=== PATIENT | male | born 1970 | race African-American/Black ===

== ENCOUNTER 2023-06-30 14:00 | Inpatient (IN) | payer SELFPAY ==
[2023-06-30 15:28] LABS: HEMATOCRIT 32.3 % (35.4-49); HEMOGLOBIN 9.6 GM/dL (11.7-16.9); MCHC 29.7 g/dl (32.0-35.9); MEAN CELL VOLUME 66.5 fl (80-96); RBC 4.86 M/mm3 (4.00-5.60); RDW 30.4 % (11.9-15.9); WHITE BLOOD COUNT 4.7 K/mm3 (4.0-10.0)
[2023-06-30 15:30] LABS: VENOUS BASE EXCESS -2.1 mmol/L (-2-2); VENOUS O2 SATURATION 88.2 % (70-80); VENOUS PCO2 45.5 mmHg (38-52); VENOUS PH 7.336 (7.310-7.410)
[2023-06-30 15:32] LABS: MCH 19.7 pg (25.7-33.7)
[2023-06-30 15:46] LABS: POTASSIUM 3.5 mmol/L (3.5-5.1)
[2023-06-30 15:50] LABS: ALBUMIN 3.1 g/dl (3.4-5.0); BLOOD UREA NITROGEN 36.1 mg/dL (7-18); MEAN PLT VOLUME 8.5 fl (7.5-11.1); PLATELET COUNT 218 10^3/uL (134-434)
[2023-06-30 15:53] LABS: CREATININE 2.5 mg/dL (0.55-1.3)
[2023-06-30 15:54] LABS: TOT PROT 7.2 g/dl (6.4-8.2)
[2023-06-30] MEDS ORDERED: ACETAMINOPHEN 1000 MG/100 ML BAG IVPB ONE (16:09)
[2023-06-30] MEDS ORDERED: ACETAMINOPHEN INJECTION 100 ML IVPB ONE (16:10)
[2023-06-30 16:59] LABS: EPI CELLS 20 /uL (0-25.1); HYALINE CASTS 1 /uL (0-3.1); PH,URINE 5.5 (5.0-8.0); URINE APPEARANCE CLEAR; URINE BACTERIA 53 /uL (0-1359); URINE BILIRUBIN NEGATIVE (NEGATIVE); URINE COLOR YELLOW; URINE GLUCOSE (UA) NEGATIVE (NEGATIVE); URINE KETONE NEGATIVE (NEGATIVE); URINE LEUK ESTERASE 2+ (NEGATIVE); URINE NITRITE NEGATIVE (NEGATIVE); URINE PROTEIN TRACE (NEGATIVE); URINE RBC 25 /uL (0-23.9); URINE UROBILINOGEN 0.2 mg/dL (0.2-1.0); URINE WBC 352 /uL (0-25.8)
[2023-06-30 17:05] LABS: N-TERMINAL BNP 8234.3 pg/ml (5-125)
[2023-06-30] MEDS ORDERED: CEFTRIAXONE 1 GM/50 ML BAG ONE (18:33)
[2023-06-30] MEDS ORDERED: METOPROLOL TARTRATE 50 MG TABLET (FP) PO SCH ×2 (20:33→22:00)
[2023-06-30] MEDS ORDERED: METOPROLOL TARTRATE 50 MG TABLET (FP) ONE (21:02)
[2023-06-30] MEDS ORDERED: FUROSEMIDE 40 MG/4 ML INJECTABLE VIAL ONE (21:03)
[2023-06-30] MEDS: FUROSEMIDE 40 MG/4 ML INJECTABLE VIAL IVPUSH SCH (21:03)
[2023-06-30] MEDS ORDERED: busPIRone HCL 5 MG TABLET ONE (23:28)
[2023-06-30] MEDS ORDERED: APIXABAN 5 MG TABLET ONE (23:28)
[2023-06-30] MEDS ORDERED: LIDOCAINE 5% TOPICAL PATCH ONE (23:29)
[2023-06-30] MEDS ORDERED: MELATONIN 5 MG TABLETS ONE (23:29)
[2023-06-30] MEDS ORDERED: traZODone HCL 50 MG TABLET (FP) ONE (23:29)
[2023-06-30] MEDS ORDERED: POTASSIUM CHLORIDE TABS 20 MEQ TABLET.ER (FP) PO ONE (23:29)
[2023-06-30] MEDS ORDERED: ATORVASTATIN CA 40 MG TABLET (FP) ONE (23:29)
[2023-07-01] MEDS: busPIRone HCL 5 MG TABLET PO SCH ×4 (00:30→22:11)
[2023-07-01] MEDS: LIDOCAINE PATCH REMOVAL MC SCH ×2 (00:31→22:11)
[2023-07-01] MEDS: traZODone HCL 50 MG TABLET (FP) PO SCH ×2 (00:31→22:10)
[2023-07-01] MEDS: MAGNESIUM CL 64 MG TABLET.SA PO SCH ×3 (00:31→23:49)
[2023-07-01] MEDS: ATORVASTATIN CA 40 MG TABLET (FP) PO SCH ×2 (00:31→22:10)
[2023-07-01] MEDS: POTASSIUM CHLORIDE TABS 20 MEQ TABLET.ER (FP) PO SCH ×3 (00:31→22:09)
[2023-07-01] MEDS: MELATONIN 5 MG TABLETS PO SCH ×2 (00:31→22:10)
[2023-07-01] MEDS: APIXABAN 5 MG TABLET PO SCH ×3 (00:31→22:10)
[2023-07-01] MEDS: INSULIN SLIDING SCALE (NOVOLOG) 1 VIAL SQ SCH ×5 (00:42→22:11)
[2023-07-01] MEDS ORDERED: ACETAMINOPHEN 325 MG TABLET (FP) ONE ×2 (01:28→20:10)
[2023-07-01] MEDS: ACETAMINOPHEN 325 MG TABLET (FP) PO PRN ×2 (01:32→20:14)
[2023-07-01] MEDS ORDERED: ISOSORBIDE MONONITRATE 30 MG TAB.SR.24H (FP) PO SCH (07:00)
[2023-07-01] MEDS ORDERED: POTASSIUM CHLORIDE TABS 20 MEQ TABLET.ER (FP) PO ONE (08:01)
[2023-07-01] MEDS ORDERED: APIXABAN 5 MG TABLET ONE (08:01)
[2023-07-01] MEDS ORDERED: PANTOPRAZOLE 40 MG TABLET PO ONE (08:01)
[2023-07-01] MEDS ORDERED: SEVELAMER CARBONATE 800 MG TAB (FP) ONE ×2 (08:02→17:53)
[2023-07-01] MEDS ORDERED: LIDOCAINE 5% TOPICAL PATCH ONE (08:02)
[2023-07-01] MEDS ORDERED: METOPROLOL TARTRATE 50 MG TABLET (FP) ONE (08:02)
[2023-07-01] MEDS ORDERED: ISOSORBIDE MONONITRATE 30 MG TAB.SR.24H (FP) PO ONE (08:02)
[2023-07-01] MEDS ORDERED: MIDODRINE HCL 5 MG TABLET ONE (08:02)
[2023-07-01] MEDS ORDERED: FUROSEMIDE 40 MG/4 ML INJECTABLE VIAL ONE ×2 (08:03→08:04)
[2023-07-01] MEDS: SEVELAMER CARBONATE 800 MG TAB (FP) PO SCH ×3 (09:00→17:45)
[2023-07-01] MEDS: FUROSEMIDE 40 MG/4 ML INJECTABLE VIAL IVPUSH SCH (09:45)
[2023-07-01] MEDS: LIDOCAINE 5% TOPICAL PATCH TP SCH (09:46)
[2023-07-01] MEDS: MIDODRINE HCL 5 MG TABLET PO SCH ×3 (09:46→17:49)
[2023-07-01] MEDS: PANTOPRAZOLE 40 MG TABLET PO SCH (09:46)
[2023-07-01] MEDS: METHIMAZOLE 10 MG TABLET PO SCH (11:00)
[2023-07-01] MEDS: LACTOBACILLUS ACIDOPHILUS 1 TABLET PO SCH (11:00)
[2023-07-01] MEDS ORDERED: busPIRone HCL 5 MG TABLET ONE (14:41)
[2023-07-02 02:51] VITALS: BMI 26.2
[2023-07-02] MEDS: METHIMAZOLE 10 MG TABLET PO SCH (06:26)
[2023-07-02] MEDS: busPIRone HCL 5 MG TABLET PO SCH ×3 (06:26→22:07)
[2023-07-02] MEDS: LACTOBACILLUS ACIDOPHILUS 1 TABLET PO SCH (06:26)
[2023-07-02] MEDS: INSULIN SLIDING SCALE (NOVOLOG) 1 VIAL SQ SCH ×4 (06:27→22:07)
[2023-07-02] MEDS: ACETAMINOPHEN 325 MG TABLET (FP) PO PRN (06:29)
[2023-07-02 08:33] LABS: POTASSIUM 3.3 mmol/L (3.5-5.1)
[2023-07-02 08:40] LABS: BLOOD UREA NITROGEN 38.6 mg/dL (7-18); CALCIUM 9.1 mg/dL (8.5-10.1)
[2023-07-02 08:44] LABS: CREATININE 2.7 mg/dL (0.55-1.3)
[2023-07-02] MEDS ORDERED: POTASSIUM CHLORIDE ORAL LIQUID 20 MEQ/15 ML PO ONE (10:01)
[2023-07-02] MEDS: APIXABAN 5 MG TABLET PO SCH ×2 (10:21→22:07)
[2023-07-02] MEDS: PANTOPRAZOLE 40 MG TABLET PO SCH (10:21)
[2023-07-02] MEDS: SEVELAMER CARBONATE 800 MG TAB (FP) PO SCH ×3 (10:21→18:07)
[2023-07-02] MEDS: POTASSIUM CHLORIDE TABS 20 MEQ TABLET.ER (FP) PO SCH (10:21)
[2023-07-02] MEDS: MIDODRINE HCL 5 MG TABLET PO SCH ×3 (10:22→19:22)
[2023-07-02] MEDS: LIDOCAINE 5% TOPICAL PATCH TP SCH (10:22)
[2023-07-02] MEDS: FUROSEMIDE 100 MG/10 ML INJECTABLE VIAL IVPB SCH (10:22)
[2023-07-02] MEDS: MAGNESIUM CL 64 MG TABLET.SA PO SCH ×2 (10:25→22:07)
[2023-07-02] MEDS ORDERED: PNEUMOC 20-VAL CONJ-DIP CRM/PF 0.5 ML SYRINGE IM ONE (11:00)
[2023-07-02] MEDS ORDERED: IRON SUCROSE INJECTION 100 MG in SODIUM CHLORIDE 95 ML IVPB ONE (16:00)
[2023-07-02] MEDS ORDERED: METOPROLOL TARTRATE 50 MG TABLET (FP) PO SCH (22:00)
[2023-07-02] MEDS: METOPROLOL TARTRATE 25 MG TABLET (FP) PO SCH (22:06)
[2023-07-02] MEDS: ATORVASTATIN CA 40 MG TABLET (FP) PO SCH (22:06)
[2023-07-02] MEDS: traZODone HCL 50 MG TABLET (FP) PO SCH (22:06)
[2023-07-02] MEDS: MELATONIN 5 MG TABLETS PO SCH (22:07)
[2023-07-02] MEDS: LIDOCAINE PATCH REMOVAL MC SCH (23:16)
[2023-07-03] MEDS: INSULIN SLIDING SCALE (NOVOLOG) 1 VIAL SQ SCH ×4 (06:13→22:55)
[2023-07-03] MEDS: METHIMAZOLE 10 MG TABLET PO SCH (06:17)
[2023-07-03] MEDS: LACTOBACILLUS ACIDOPHILUS 1 TABLET PO SCH (06:17)
[2023-07-03] MEDS: METOPROLOL TARTRATE 25 MG TABLET (FP) PO SCH ×4 (06:17→22:42)
[2023-07-03] MEDS: busPIRone HCL 5 MG TABLET PO SCH ×3 (06:17→22:43)
[2023-07-03 06:55] LABS: PHENCYCLIDINE,URINE NEGATIVE (NEGATIVE); URINE BARBITURATES NEGATIVE (NEGATIVE)
[2023-07-03 06:56] LABS: METHADONE, UR NEGATIVE (NEGATIVE); OPIATES, URI NEGATIVE (NEGATIVE); URINE AMPHETAMINES NEGATIVE (NEGATIVE); URINE BENZODIAZEPINES NEGATIVE (NEGATIVE)
[2023-07-03 07:04] LABS: COCAINE, UR NEGATIVE (NEGATIVE)
[2023-07-03] MEDS: SEVELAMER CARBONATE 800 MG TAB (FP) PO SCH ×3 (07:51→17:04)
[2023-07-03 08:39] LABS: HEMATOCRIT 31.4 % (35.4-49); HEMOGLOBIN 9.5 GM/dL (11.7-16.9); MCHC 30.2 g/dl (32.0-35.9); MEAN CELL VOLUME 65.3 fl (80-96); MEAN PLT VOLUME 8.4 fl (7.5-11.1); PLATELET COUNT 180 10^3/uL (134-434); RBC 4.81 M/mm3 (4.00-5.60)
[2023-07-03 08:44] LABS: MCH 19.7 pg (25.7-33.7)
[2023-07-03 08:57] LABS: POTASSIUM 3.5 mmol/L (3.5-5.1)
[2023-07-03 08:59] LABS: BLOOD UREA NITROGEN 34.2 mg/dL (7-18); CALCIUM 9.2 mg/dL (8.5-10.1)
[2023-07-03 09:00] LABS: ALBUMIN 3.2 g/dl (3.4-5.0); MAGNESIUM 2.3 mg/dL (1.8-2.4)
[2023-07-03 09:02] LABS: CREATININE 2.4 mg/dL (0.55-1.3)
[2023-07-03 09:04] LABS: BILIRUBIN,TOTAL 0.9 mg/dL (0.2-1)
[2023-07-03] MEDS: PANTOPRAZOLE 40 MG TABLET PO SCH (11:00)
[2023-07-03] MEDS: MAGNESIUM CL 64 MG TABLET.SA PO SCH ×2 (11:00→22:41)
[2023-07-03] MEDS: APIXABAN 5 MG TABLET PO SCH ×2 (11:00→22:43)
[2023-07-03] MEDS: LIDOCAINE 5% TOPICAL PATCH TP SCH (11:00)
[2023-07-03] MEDS: FUROSEMIDE 100 MG/10 ML INJECTABLE VIAL IVPB SCH (11:00)
[2023-07-03] MEDS: ISOSORBIDE MONONITRATE 30 MG TAB.SR.24H (FP) PO SCH (11:00)
[2023-07-03] MEDS ORDERED: INSULIN (NOVOLOG) ASPART 100 UNITS/ML 10ML VIAL ONE (11:27)
[2023-07-03] MEDS: ACETAMINOPHEN 325 MG TABLET (FP) PO PRN ×2 (15:45→22:43)
[2023-07-03] MEDS: traZODone HCL 50 MG TABLET (FP) PO SCH (22:41)
[2023-07-03] MEDS: MELATONIN 5 MG TABLETS PO SCH (22:41)
[2023-07-03] MEDS: ATORVASTATIN CA 40 MG TABLET (FP) PO SCH (22:42)
[2023-07-03] MEDS: LIDOCAINE PATCH REMOVAL MC SCH (22:43)
[2023-07-04] MEDS: INSULIN SLIDING SCALE (NOVOLOG) 1 VIAL SQ SCH ×4 (06:04→22:14)
[2023-07-04] MEDS: METHIMAZOLE 10 MG TABLET PO SCH (06:05)
[2023-07-04] MEDS: busPIRone HCL 5 MG TABLET PO SCH ×3 (06:05→22:11)
[2023-07-04] MEDS: METOPROLOL TARTRATE 25 MG TABLET (FP) PO SCH ×4 (06:05→22:12)
[2023-07-04] MEDS: LACTOBACILLUS ACIDOPHILUS 1 TABLET PO SCH (06:05)
[2023-07-04] MEDS: SEVELAMER CARBONATE 800 MG TAB (FP) PO SCH ×3 (08:29→17:01)
[2023-07-04] MEDS: PANTOPRAZOLE 40 MG TABLET PO SCH (09:29)
[2023-07-04] MEDS: ISOSORBIDE MONONITRATE 30 MG TAB.SR.24H (FP) PO SCH (09:29)
[2023-07-04] MEDS: APIXABAN 5 MG TABLET PO SCH ×2 (09:29→22:12)
[2023-07-04] MEDS: LIDOCAINE 5% TOPICAL PATCH TP SCH (09:30)
[2023-07-04] MEDS: FUROSEMIDE 100 MG/10 ML INJECTABLE VIAL IVPB SCH (09:30)
[2023-07-04] MEDS: MAGNESIUM CL 64 MG TABLET.SA PO SCH ×2 (09:30→22:13)
[2023-07-04] MEDS ORDERED: INSULIN (NOVOLOG) ASPART 100 UNITS/ML 10ML VIAL ONE (11:08)
[2023-07-04] MEDS: ACETAMINOPHEN 325 MG TABLET (FP) PO PRN ×2 (13:49→22:00)
[2023-07-04 16:28] LABS: HEMATOCRIT 31.7 % (35.4-49); HEMOGLOBIN 9.4 GM/dL (11.7-16.9); MCHC 29.7 g/dl (32.0-35.9); MEAN CELL VOLUME 65.9 fl (80-96); RBC 4.81 M/mm3 (4.00-5.60); RDW 30.9 % (11.9-15.9); WHITE BLOOD COUNT 4.6 K/mm3 (4.0-10.0)
[2023-07-04 16:31] LABS: MCH 19.6 pg (25.7-33.7)
[2023-07-04 16:36] LABS: POTASSIUM 3.2 mmol/L (3.5-5.1)
[2023-07-04 16:38] LABS: CALCIUM 8.7 mg/dL (8.5-10.1)
[2023-07-04 16:39] LABS: ALBUMIN 3.2 g/dl (3.4-5.0); BLOOD UREA NITROGEN 37.8 mg/dL (7-18)
[2023-07-04 16:42] LABS: CREATININE 2.3 mg/dL (0.55-1.3); PHOSPHOROUS 3.4 mg/dL (2.5-4.9)
[2023-07-04 16:43] LABS: BILIRUBIN,TOTAL 0.9 mg/dL (0.2-1); TOT PROT 7.3 g/dl (6.4-8.2)
[2023-07-04 17:11] LABS: MEAN PLT VOLUME 8.1 fl (7.5-11.1); PLATELET COUNT 210 10^3/uL (134-434)
[2023-07-04] MEDS ORDERED: POTASSIUM CHLORIDE TABS 20 MEQ TABLET.ER (FP) PO ONE ×2 (19:39→22:00)
[2023-07-04] MEDS: MELATONIN 5 MG TABLETS PO SCH (22:12)
[2023-07-04] MEDS: traZODone HCL 50 MG TABLET (FP) PO SCH (22:12)
[2023-07-04] MEDS: ATORVASTATIN CA 40 MG TABLET (FP) PO SCH (22:12)
[2023-07-04] MEDS: LIDOCAINE PATCH REMOVAL MC SCH (22:43)
[2023-07-05] MEDS: INSULIN SLIDING SCALE (NOVOLOG) 1 VIAL SQ SCH ×4 (06:33→22:30)
[2023-07-05] MEDS: METHIMAZOLE 10 MG TABLET PO SCH (06:33)
[2023-07-05] MEDS: METOPROLOL TARTRATE 25 MG TABLET (FP) PO SCH ×2 (06:33→11:01)
[2023-07-05] MEDS: LACTOBACILLUS ACIDOPHILUS 1 TABLET PO SCH (06:33)
[2023-07-05] MEDS: busPIRone HCL 5 MG TABLET PO SCH ×3 (06:33→21:59)
[2023-07-05] MEDS: SEVELAMER CARBONATE 800 MG TAB (FP) PO SCH ×3 (08:21→16:46)
[2023-07-05] MEDS: PANTOPRAZOLE 40 MG TABLET PO SCH (11:01)
[2023-07-05] MEDS: APIXABAN 5 MG TABLET PO SCH (11:01)
[2023-07-05] MEDS: LIDOCAINE 5% TOPICAL PATCH TP SCH (11:02)
[2023-07-05] MEDS: ISOSORBIDE MONONITRATE 30 MG TAB.SR.24H (FP) PO SCH (11:02)
[2023-07-05] MEDS: FUROSEMIDE 100 MG/10 ML INJECTABLE VIAL IVPB SCH (11:02)
[2023-07-05] MEDS: MAGNESIUM CL 64 MG TABLET.SA PO SCH ×2 (11:02→23:36)
[2023-07-05] MEDS ORDERED: POTASSIUM CHLORIDE ORAL LIQUID 20 MEQ/15 ML PO ONE (14:00)
[2023-07-05] MEDS ORDERED: METOPROLOL TARTRATE 25 MG TABLET (FP) PO SCH ×2 (16:00→18:00)
[2023-07-05 16:45] LABS: HEMOGLOBIN 9.1 GM/dL (11.7-16.9); MCHC 28.4 g/dl (32.0-35.9); MEAN CELL VOLUME 66.9 fl (80-96); MEAN PLT VOLUME 8.3 fl (7.5-11.1); PLATELET COUNT 162 10^3/uL (134-434); RBC 4.78 M/mm3 (4.00-5.60); RDW 30.2 % (11.9-15.9)
[2023-07-05] MEDS: ACETAMINOPHEN 325 MG TABLET (FP) PO PRN (16:45)
[2023-07-05 17:04] LABS: POTASSIUM 3.3 mmol/L (3.5-5.1)
[2023-07-05 17:07] LABS: ALBUMIN 3.1 g/dl (3.4-5.0); BLOOD UREA NITROGEN 41.5 mg/dL (7-18); CALCIUM 8.6 mg/dL (8.5-10.1); MAGNESIUM 2.2 mg/dL (1.8-2.4)
[2023-07-05 17:10] LABS: CREATININE 2.2 mg/dL (0.55-1.3); PHOSPHOROUS 3.6 mg/dL (2.5-4.9)
[2023-07-05 17:12] LABS: BILIRUBIN,TOTAL 0.9 mg/dL (0.2-1)
[2023-07-05] MEDS: traZODone HCL 50 MG TABLET (FP) PO SCH (21:57)
[2023-07-05] MEDS: ATORVASTATIN CA 40 MG TABLET (FP) PO SCH (21:59)
[2023-07-05] MEDS: MELATONIN 5 MG TABLETS PO SCH (21:59)
[2023-07-05] MEDS: ENOXAPARIN NA (PORCINE) 100 MG/1 ML DISP.SYRIN SQ SCH (22:00)
[2023-07-05] MEDS ORDERED: APIXABAN 5 MG TABLET PO SCH (22:00)
[2023-07-05] MEDS: METOPROLOL TARTRATE 50 MG TABLET (FP) PO SCH (22:01)
[2023-07-05] MEDS: LIDOCAINE PATCH REMOVAL MC SCH (23:35)
[2023-07-06] MEDS: busPIRone HCL 5 MG TABLET PO SCH ×3 (05:35→21:16)
[2023-07-06] MEDS: LACTOBACILLUS ACIDOPHILUS 1 TABLET PO SCH (06:05)
[2023-07-06] MEDS: METHIMAZOLE 10 MG TABLET PO SCH (06:07)
[2023-07-06] MEDS: ACETAMINOPHEN 325 MG TABLET (FP) PO PRN ×2 (06:07→18:18)
[2023-07-06] MEDS: INSULIN SLIDING SCALE (NOVOLOG) 1 VIAL SQ SCH ×4 (06:12→21:17)
[2023-07-06 08:08] LABS: BASO % 1.3 % (0-2.0); EOS % 2.6 % (0-4.5); HEMATOCRIT 28.5 % (35.4-49); HEMOGLOBIN 8.9 GM/dL (11.7-16.9); LYMPH % 14.6 % (8-40); MCH 20.2 pg (25.7-33.7); MCHC 31.1 g/dl (32.0-35.9); MEAN PLT VOLUME 8.1 fl (7.5-11.1); MONO % 12.2 % (3.8-10.2); NEUT % 69.3 % (42.8-82.8); PLATELET COUNT 199 10^3/uL (134-434); RBC 4.38 M/mm3 (4.00-5.60); RDW 29.3 % (11.9-15.9); WHITE BLOOD COUNT 4.7 K/mm3 (4.0-10.0)
[2023-07-06 08:17] LABS: POTASSIUM 3.2 mmol/L (3.5-5.1)
[2023-07-06 08:28] LABS: CALCIUM 8.9 mg/dL (8.5-10.1); INR 2.22 (0.83-1.09); PROTHROMBIN TIME (PATIENT) 25.6 SEC (9.7-13.0)
[2023-07-06 08:29] LABS: BLOOD UREA NITROGEN 48.3 mg/dL (7-18); MAGNESIUM 2.2 mg/dL (1.8-2.4)
[2023-07-06 08:32] LABS: CREATININE 2.1 mg/dL (0.55-1.3)
[2023-07-06 08:34] LABS: TOT PROT 6.9 g/dl (6.4-8.2)
[2023-07-06] MEDS: SEVELAMER CARBONATE 800 MG TAB (FP) PO SCH ×3 (09:01→17:30)
[2023-07-06 09:31] LABS: ANISOCYTOSIS 3+; MACROCYTOSIS 0; OVALOCYTE 2+; TEAR DROP CELLS 1+
[2023-07-06] MEDS: PANTOPRAZOLE 40 MG TABLET PO SCH (10:04)
[2023-07-06] MEDS: LIDOCAINE 5% TOPICAL PATCH TP SCH (10:04)
[2023-07-06] MEDS: METOPROLOL TARTRATE 50 MG TABLET (FP) PO SCH ×3 (10:04→22:30)
[2023-07-06] MEDS: ISOSORBIDE MONONITRATE 30 MG TAB.SR.24H (FP) PO SCH (10:04)
[2023-07-06] MEDS: FUROSEMIDE 100 MG/10 ML INJECTABLE VIAL IVPB SCH (10:06)
[2023-07-06] MEDS: ENOXAPARIN NA (PORCINE) 100 MG/1 ML DISP.SYRIN SQ SCH ×3 (10:07→21:23)
[2023-07-06] MEDS: MAGNESIUM CL 64 MG TABLET.SA PO SCH ×2 (10:07→21:16)
[2023-07-06] MEDS ORDERED: POTASSIUM CHLORIDE ORAL LIQUID 20 MEQ/15 ML PO ONE (15:02)
[2023-07-06] MEDS ORDERED: POTASSIUM CHLORIDE TABS 20 MEQ TABLET.ER (FP) PO ONE (15:45)
[2023-07-06] MEDS: ATORVASTATIN CA 40 MG TABLET (FP) PO SCH (21:14)
[2023-07-06] MEDS: MELATONIN 5 MG TABLETS PO SCH (21:14)
[2023-07-06] MEDS: traZODone HCL 50 MG TABLET (FP) PO SCH (21:15)
[2023-07-07] MEDS: ACETAMINOPHEN 325 MG TABLET (FP) PO PRN (00:41)
[2023-07-07] MEDS: LIDOCAINE PATCH REMOVAL MC SCH ×2 (00:51→21:42)
[2023-07-07] MEDS: LACTOBACILLUS ACIDOPHILUS 1 TABLET PO SCH (06:00)
[2023-07-07] MEDS: busPIRone HCL 5 MG TABLET PO SCH ×3 (06:00→21:39)
[2023-07-07] MEDS: INSULIN SLIDING SCALE (NOVOLOG) 1 VIAL SQ SCH ×4 (06:04→21:35)
[2023-07-07] MEDS: METHIMAZOLE 10 MG TABLET PO SCH (06:52)
[2023-07-07] MEDS: SEVELAMER CARBONATE 800 MG TAB (FP) PO SCH ×3 (07:54→16:51)
[2023-07-07] MEDS: METOPROLOL TARTRATE 50 MG TABLET (FP) PO SCH ×2 (09:41→21:38)
[2023-07-07] MEDS: PANTOPRAZOLE 40 MG TABLET PO SCH (09:41)
[2023-07-07] MEDS: LIDOCAINE 5% TOPICAL PATCH TP SCH (09:41)
[2023-07-07] MEDS: ISOSORBIDE MONONITRATE 30 MG TAB.SR.24H (FP) PO SCH (09:41)
[2023-07-07] MEDS: FUROSEMIDE 100 MG/10 ML INJECTABLE VIAL IVPB SCH (09:42)
[2023-07-07] MEDS: ENOXAPARIN NA (PORCINE) 100 MG/1 ML DISP.SYRIN SQ SCH ×2 (09:42→21:40)
[2023-07-07 09:45] LABS: EOS % 2.6 % (0-4.5); HEMATOCRIT 28.9 % (35.4-49); HEMOGLOBIN 8.8 GM/dL (11.7-16.9); LYMPH % 18.1 % (8-40); MCHC 30.6 g/dl (32.0-35.9); MEAN CELL VOLUME 65.2 fl (80-96); MEAN PLT VOLUME 8.2 fl (7.5-11.1); MONO % 13.6 % (3.8-10.2); NEUT % 64.7 % (42.8-82.8); PLATELET COUNT 181 10^3/uL (134-434); RBC 4.42 M/mm3 (4.00-5.60); RDW 29.2 % (11.9-15.9); WHITE BLOOD COUNT 4.5 K/mm3 (4.0-10.0)
[2023-07-07] MEDS: MAGNESIUM CL 64 MG TABLET.SA PO SCH ×2 (09:46→21:41)
[2023-07-07 10:17] LABS: POTASSIUM 3.6 mmol/L (3.5-5.1)
[2023-07-07 10:21] LABS: CALCIUM 8.7 mg/dL (8.5-10.1)
[2023-07-07 10:22] LABS: ALBUMIN 3.1 g/dl (3.4-5.0); BLOOD UREA NITROGEN 48.3 mg/dL (7-18); MAGNESIUM 2.3 mg/dL (1.8-2.4)
[2023-07-07 10:25] LABS: CREATININE 2.3 mg/dL (0.55-1.3); PHOSPHOROUS 3.8 mg/dL (2.5-4.9)
[2023-07-07 10:26] LABS: BILIRUBIN,TOTAL 0.9 mg/dL (0.2-1)
[2023-07-07 10:27] LABS: TOT PROT 6.8 g/dl (6.4-8.2)
[2023-07-07] MEDS: traZODone HCL 50 MG TABLET (FP) PO SCH (21:38)
[2023-07-07] MEDS: ATORVASTATIN CA 40 MG TABLET (FP) PO SCH (21:38)
[2023-07-07] MEDS: MELATONIN 5 MG TABLETS PO SCH (21:39)
[2023-07-08] MEDS: busPIRone HCL 5 MG TABLET PO SCH ×3 (06:19→22:15)
[2023-07-08] MEDS: INSULIN SLIDING SCALE (NOVOLOG) 1 VIAL SQ SCH ×3 (06:19→16:35)
[2023-07-08] MEDS: LACTOBACILLUS ACIDOPHILUS 1 TABLET PO SCH (06:19)
[2023-07-08] MEDS: METHIMAZOLE 10 MG TABLET PO SCH (06:55)
[2023-07-08] MEDS: SEVELAMER CARBONATE 800 MG TAB (FP) PO SCH ×3 (08:29→17:13)
[2023-07-08 09:05] LABS: HEMATOCRIT 29.4 % (35.4-49); HEMOGLOBIN 8.7 GM/dL (11.7-16.9); MCH 19.6 pg (25.7-33.7); MCHC 29.5 g/dl (32.0-35.9); MEAN CELL VOLUME 66.4 fl (80-96); MEAN PLT VOLUME 8.4 fl (7.5-11.1); PLATELET COUNT 220 10^3/uL (134-434); RBC 4.43 M/mm3 (4.00-5.60); RDW 28.7 % (11.9-15.9); WHITE BLOOD COUNT 5.1 K/mm3 (4.0-10.0)
[2023-07-08 09:22] LABS: POTASSIUM 3.4 mmol/L (3.5-5.1)
[2023-07-08 09:24] LABS: CALCIUM 8.9 mg/dL (8.5-10.1)
[2023-07-08 09:25] LABS: ALBUMIN 3.1 g/dl (3.4-5.0); MAGNESIUM 2.2 mg/dL (1.8-2.4)
[2023-07-08 09:28] LABS: CREATININE 2.3 mg/dL (0.55-1.3); PHOSPHOROUS 3.6 mg/dL (2.5-4.9)
[2023-07-08 09:29] LABS: TOT PROT 7.1 g/dl (6.4-8.2)
[2023-07-08] MEDS: ISOSORBIDE MONONITRATE 30 MG TAB.SR.24H (FP) PO SCH (09:29)
[2023-07-08] MEDS: PANTOPRAZOLE 40 MG TABLET PO SCH (09:29)
[2023-07-08] MEDS: MAGNESIUM CL 64 MG TABLET.SA PO SCH ×2 (09:29→22:16)
[2023-07-08] MEDS: METOPROLOL TARTRATE 50 MG TABLET (FP) PO SCH ×2 (09:29→22:15)
[2023-07-08] MEDS: ENOXAPARIN NA (PORCINE) 100 MG/1 ML DISP.SYRIN SQ SCH ×3 (09:30→22:19)
[2023-07-08] MEDS: FUROSEMIDE 100 MG/10 ML INJECTABLE VIAL IVPB SCH (09:30)
[2023-07-08 10:30] LABS: ANISOCYTOSIS 0; MACROCYTOSIS 0; OVALOCYTE 1+
[2023-07-08] MEDS: LIDOCAINE 5% TOPICAL PATCH TP SCH (10:31)
[2023-07-08] MEDS: POTASSIUM CHLORIDE ORAL LIQUID 20 MEQ/15 ML PO ONE ×2 (13:16→13:19)
[2023-07-08] MEDS ORDERED: POTASSIUM CHLORIDE TABS 20 MEQ TABLET.ER (FP) PO ONE (14:00)
[2023-07-08] MEDS: ACETAMINOPHEN 325 MG TABLET (FP) PO PRN (15:38)
[2023-07-08] MEDS: traZODone HCL 50 MG TABLET (FP) PO SCH (22:15)
[2023-07-08] MEDS: ATORVASTATIN CA 40 MG TABLET (FP) PO SCH (22:15)
[2023-07-08] MEDS: MELATONIN 5 MG TABLETS PO SCH (22:15)
[2023-07-08] MEDS: LIDOCAINE PATCH REMOVAL MC SCH (22:21)
[2023-07-09] MEDS ORDERED: LEVALBUTEROL HCL 0.63 MG/3 ML VIAL.NEB. IH ONE (01:31)
[2023-07-09] MEDS: METHIMAZOLE 10 MG TABLET PO SCH (06:59)
[2023-07-09] MEDS: busPIRone HCL 5 MG TABLET PO SCH ×3 (06:59→21:55)
[2023-07-09] MEDS: LACTOBACILLUS ACIDOPHILUS 1 TABLET PO SCH (06:59)
[2023-07-09] MEDS: INSULIN SLIDING SCALE (NOVOLOG) 1 VIAL SQ SCH ×2 (07:03→16:44)
[2023-07-09] MEDS: ACETAMINOPHEN 325 MG TABLET (FP) PO PRN ×2 (07:06→14:17)
[2023-07-09] MEDS: SEVELAMER CARBONATE 800 MG TAB (FP) PO SCH ×3 (08:43→16:44)
[2023-07-09] MEDS: METOPROLOL TARTRATE 50 MG TABLET (FP) PO SCH (09:58)
[2023-07-09] MEDS: ENOXAPARIN NA (PORCINE) 100 MG/1 ML DISP.SYRIN SQ SCH (09:58)
[2023-07-09] MEDS: LIDOCAINE 5% TOPICAL PATCH TP SCH (09:58)
[2023-07-09] MEDS: ISOSORBIDE MONONITRATE 30 MG TAB.SR.24H (FP) PO SCH (09:58)
[2023-07-09] MEDS: PANTOPRAZOLE 40 MG TABLET PO SCH (09:58)
[2023-07-09] MEDS: FUROSEMIDE 100 MG/10 ML INJECTABLE VIAL IVPB SCH (09:59)
[2023-07-09] MEDS: MAGNESIUM CL 64 MG TABLET.SA PO SCH ×2 (09:59→21:55)
[2023-07-09] MEDS: ALLOPURINOL 300 MG TABLET (FP) PO SCH (11:57)
[2023-07-09] MEDS: LIDOCAINE PATCH REMOVAL MC SCH (21:50)
[2023-07-09] MEDS: MELATONIN 5 MG TABLETS PO SCH (21:54)
[2023-07-09] MEDS: METOPROLOL TARTRATE 25 MG TABLET (FP) PO SCH (21:54)
[2023-07-09] MEDS: ATORVASTATIN CA 40 MG TABLET (FP) PO SCH (21:54)
[2023-07-09] MEDS: traZODone HCL 50 MG TABLET (FP) PO SCH (21:55)
[2023-07-09] MEDS: APIXABAN 5 MG TABLET PO SCH (21:55)
[2023-07-10] MEDS: ALLOPURINOL 300 MG TABLET (FP) PO SCH (06:16)
[2023-07-10] MEDS: FUROSEMIDE 40 MG TABLET (FP) PO SCH ×2 (06:16→13:51)
[2023-07-10] MEDS: METHIMAZOLE 10 MG TABLET PO SCH (06:16)
[2023-07-10] MEDS: LACTOBACILLUS ACIDOPHILUS 1 TABLET PO SCH (06:17)
[2023-07-10] MEDS: busPIRone HCL 5 MG TABLET PO SCH ×2 (06:17→13:51)
[2023-07-10] MEDS: INSULIN SLIDING SCALE (NOVOLOG) 1 VIAL SQ SCH ×2 (06:21→17:17)
[2023-07-10] MEDS: METOPROLOL TARTRATE 25 MG TABLET (FP) PO SCH (09:02)
[2023-07-10] MEDS: APIXABAN 5 MG TABLET PO SCH (09:02)
[2023-07-10] MEDS: ISOSORBIDE MONONITRATE 30 MG TAB.SR.24H (FP) PO SCH (09:02)
[2023-07-10] MEDS: SEVELAMER CARBONATE 800 MG TAB (FP) PO SCH ×3 (09:02→17:15)
[2023-07-10] MEDS: PANTOPRAZOLE 40 MG TABLET PO SCH (09:02)
[2023-07-10] MEDS: LIDOCAINE 5% TOPICAL PATCH TP SCH (09:02)
[2023-07-10] MEDS: MAGNESIUM CL 64 MG TABLET.SA PO SCH (09:14)
[2023-07-10 10:56] LABS: BASO % 0.6 % (0-2.0); EOS % 1.9 % (0-4.5); HEMATOCRIT 28.7 % (35.4-49); HEMOGLOBIN 8.6 GM/dL (11.7-16.9); MCHC 30.1 g/dl (32.0-35.9); MEAN CELL VOLUME 66.3 fl (80-96); MEAN PLT VOLUME 8.2 fl (7.5-11.1); MONO % 13.7 % (3.8-10.2); NEUT % 71.8 % (42.8-82.8); PLATELET COUNT 184 10^3/uL (134-434); RBC 4.33 M/mm3 (4.00-5.60); RDW 29.1 % (11.9-15.9); WHITE BLOOD COUNT 5.3 K/mm3 (4.0-10.0)
[2023-07-10 10:57] LABS: MCH 19.9 pg (25.7-33.7)
[2023-07-10 11:45] LABS: ANISOCYTOSIS 1+; MACROCYTOSIS 0; OVALOCYTE 1+
[2023-07-10 11:52] LABS: POTASSIUM 3.2 mmol/L (3.5-5.1)
[2023-07-10 11:56] VITALS: RESP 18; TEMP 98
[2023-07-10 12:00] LABS: BLOOD UREA NITROGEN 36.9 mg/dL (7-18); CALCIUM 8.5 mg/dL (8.5-10.1); MAGNESIUM 2.3 mg/dL (1.8-2.4)
[2023-07-10 12:01] LABS: ALBUMIN 3.2 g/dl (3.4-5.0)
[2023-07-10 12:04] LABS: CREATININE 2.2 mg/dL (0.55-1.3); PHOSPHOROUS 3.9 mg/dL (2.5-4.9)
[2023-07-10 12:05] LABS: BILIRUBIN,TOTAL 0.9 mg/dL (0.2-1); TOT PROT 6.9 g/dl (6.4-8.2)
[2023-07-10] MEDS: ACETAMINOPHEN 325 MG TABLET (FP) PO PRN (13:51)
[2023-07-10] MEDS: POTASSIUM CHLORIDE ORAL LIQUID 20 MEQ/15 ML PO ONE ×2 (14:33→14:36)
[2023-07-10] MEDS ORDERED: POTASSIUM CHLORIDE TABS 20 MEQ TABLET.ER (FP) PO ONE (14:40)
[2023-07-10 15:40] VITALS: BP 103/59; PULSE 103
== END 2023-07-10 22:35 | DRG 194 ==
LOC: JER 14:00 → JERBED 17:29 → J4W 07-01 21:53 → J6S 07-05 15:27
PROVIDERS: ADMIT Internal Medicine; ATTEND Internal Medicine
DX: I13.0 Hypertensive heart and chronic kidney disease with heart failure and stage 1 through stage 4 chronic kidney disease, or unspecified chronic kidney disease (principal); E11.22 Type 2 diabetes mellitus with diabetic chronic kidney disease; J96.21 Acute and chronic respiratory failure with hypoxia; E87.0 Hyperosmolality and hypernatremia; N18.30 Chronic kidney disease, stage 3 unspecified; I50.33 Acute on chronic diastolic (congestive) heart failure; F32.A Depression, unspecified; K59.00 Constipation, unspecified; G89.29 Other chronic pain; E78.5 Hyperlipidemia, unspecified; N17.9 Acute kidney failure, unspecified; I27.20 Pulmonary hypertension, unspecified; I42.0 Dilated cardiomyopathy; D50.9 Iron deficiency anemia, unspecified; E05.90 Thyrotoxicosis, unspecified without thyrotoxic crisis or storm; I48.91 Unspecified atrial fibrillation; M10.9 Gout, unspecified; E87.6 Hypokalemia; N39.0 Urinary tract infection, site not specified; B96.89 Other specified bacterial agents as the cause of diseases classified elsewhere; B95.1 Streptococcus, group B, as the cause of diseases classified elsewhere; J44.9 Chronic obstructive pulmonary disease, unspecified; N31.9 Neuromuscular dysfunction of bladder, unspecified; N40.1 Benign prostatic hyperplasia with lower urinary tract symptoms; R33.8 Other retention of urine; Z93.50 Unspecified cystostomy status; Z86.73 Personal history of transient ischemic attack (TIA), and cerebral infarction without residual deficits
CPT/HCPCS: 0241U-QW; 36415; 71045-TC-FY; 71046-TC-FY; 71250-TC; 76775-TC; 80048; 80053; 80061; 80307; 81003; 82570; 82607; 82728; 82746; 82803; 82962; 83036; 83540; 83550; 83735; 83880; 84100; 84155; 84156; 84165; 84300; 84439; 84443; 84484; 84540; 85025; 85027; 85610; 86038; 86160; 87077; 87086; 87186; 93005; 93010; 93306-TC; 97116-GP; 97162-GP; 99285-25

== ENCOUNTER 2023-08-15 01:14 | Inpatient (IN) | payer OTHER ==
[2023-08-15 03:25] LABS: BASO % 1.9 % (0-2.0); EOS % 1.9 % (0-4.5); HEMATOCRIT 18.4 % (35.4-49); LYMPH % 8.5 % (8-40); MCHC 29.1 g/dl (32.0-35.9); MEAN PLT VOLUME 7.7 fl (7.5-11.1); MONO % 14.1 % (3.8-10.2); NEUT % 73.6 % (42.8-82.8); PLATELET COUNT 334 10^3/uL (134-434); RDW 23.5 % (11.9-15.9)
[2023-08-15 03:26] LABS: MCH 19.2 pg (25.7-33.7)
[2023-08-15 03:28] LABS: HEMOGLOBIN 5.4 GM/dL (11.7-16.9)
[2023-08-15 03:33] LABS: INR 3.15 (0.83-1.09); PROTHROMBIN TIME (PATIENT) 36.1 SEC (9.7-13.0)
[2023-08-15 03:35] LABS: ACTIVATED PTT 29.1 SECONDS (25.2-36.5)
[2023-08-15 03:50] LABS: ALBUMIN 2.7 g/dl (3.4-5.0)
[2023-08-15 03:53] LABS: CREATININE 3.8 mg/dL (0.55-1.3)
[2023-08-15 03:55] LABS: BILIRUBIN,TOTAL 0.8 mg/dL (0.2-1); TOT PROT 7.1 g/dl (6.4-8.2)
[2023-08-15 06:05] LABS: ANISOCYTOSIS 3+; MACROCYTOSIS 0; ROULEAU 1+; TARGET CELLS 1+; TEAR DROP CELLS 1+
[2023-08-15 08:38] VITALS: BMI 31.8
[2023-08-15 08:49] LABS: RETICULOCYTES 2.24 % (0.5-1.5)
[2023-08-15] MEDS ORDERED: TORSEMIDE 20 MG TABLET (FP) PO SCH (09:15)
[2023-08-15] MEDS ORDERED: hydrALAZINE HCL 10 MG TABLET PO SCH (09:15)
[2023-08-15] MEDS: PANTOPRAZOLE SODIUM 40 MG VIAL IVPUSH SCH (10:44)
[2023-08-15 11:29] LABS: EPI CELLS 16 /uL (0-25.1); HYALINE CASTS 0 /uL (0-3.1); URINE APPEARANCE CLEAR; URINE BACTERIA 58 /uL (0-1359); URINE BILIRUBIN NEGATIVE (NEGATIVE); URINE COLOR YELLOW; URINE GLUCOSE (UA) NEGATIVE (NEGATIVE); URINE KETONE NEGATIVE (NEGATIVE); URINE LEUK ESTERASE 2+ (NEGATIVE); URINE NITRITE NEGATIVE (NEGATIVE); URINE PROTEIN TRACE (NEGATIVE); URINE RBC 16 /uL (0-23.9); URINE UROBILINOGEN 0.2 mg/dL (0.2-1.0); URINE WBC 77 /uL (0-25.8)
[2023-08-15 11:50] LABS: URINE UREA NITROGEN 557 MG/DL (350-1000)
[2023-08-15] MEDS: INSULIN SLIDING SCALE (NOVOLOG) 1 VIAL SQ SCH ×3 (13:04→21:57)
[2023-08-15] MEDS: SEVELAMER CARBONATE 800 MG TAB (FP) PO SCH ×2 (13:05→18:07)
[2023-08-15] MEDS: busPIRone HCL 5 MG TABLET PO SCH ×2 (14:45→21:49)
[2023-08-15 16:15] LABS: BASO % 1.6 % (0-2.0); EOS % 1.4 % (0-4.5); HEMATOCRIT 22.3 % (35.4-49); MCHC 27.8 g/dl (32.0-35.9); MEAN CELL VOLUME 69.7 fl (80-96); MEAN PLT VOLUME 8.1 fl (7.5-11.1); MONO % 18.3 % (3.8-10.2); NEUT % 70.7 % (42.8-82.8); PLATELET COUNT 332 10^3/uL (134-434); RDW 23.2 % (11.9-15.9); WHITE BLOOD COUNT 6.2 K/mm3 (4.0-10.0)
[2023-08-15 16:17] LABS: MCH 19.4 pg (25.7-33.7)
[2023-08-15 16:18] LABS: HEMOGLOBIN 6.2 GM/dL (11.7-16.9)
[2023-08-15 17:06] LABS: POTASSIUM 5.3 mmol/L (3.5-5.1)
[2023-08-15 17:09] LABS: ALBUMIN 2.7 g/dl (3.4-5.0)
[2023-08-15 17:12] LABS: CREATININE 3.9 mg/dL (0.55-1.3)
[2023-08-15 17:14] LABS: BILIRUBIN,TOTAL 1.1 mg/dL (0.2-1); TOT PROT 6.8 g/dl (6.4-8.2)
[2023-08-15] MEDS: MELATONIN 5 MG TABLETS PO SCH (21:48)
[2023-08-15] MEDS: ATORVASTATIN CA 40 MG TABLET (FP) PO SCH (21:48)
[2023-08-15] MEDS: traZODone HCL 50 MG TABLET (FP) PO SCH (21:48)
[2023-08-15 23:09] LABS: BASO % 0.9 % (0-2.0); EOS % 2.1 % (0-4.5); HEMATOCRIT 22.1 % (35.4-49); LYMPH % 7.2 % (8-40); MCH 20.6 pg (25.7-33.7); MEAN CELL VOLUME 68.5 fl (80-96); MEAN PLT VOLUME 7.5 fl (7.5-11.1); MONO % 16.2 % (3.8-10.2); NEUT % 73.6 % (42.8-82.8); PLATELET COUNT 292 10^3/uL (134-434); RBC 3.23 M/mm3 (4.00-5.60); RDW 22.8 % (11.9-15.9); WHITE BLOOD COUNT 6.1 K/mm3 (4.0-10.0)
[2023-08-15 23:19] LABS: HEMOGLOBIN 6.6 GM/dL (11.7-16.9)
[2023-08-16] MEDS: TORSEMIDE 20 MG TABLET (FP) PO SCH ×2 (06:47→17:29)
[2023-08-16] MEDS: ISOSORBIDE MONONITRATE 30 MG TAB.SR.24H (FP) PO SCH (06:47)
[2023-08-16] MEDS: busPIRone HCL 5 MG TABLET PO SCH ×3 (06:48→22:31)
[2023-08-16] MEDS: INSULIN SLIDING SCALE (NOVOLOG) 1 VIAL SQ SCH ×4 (06:48→21:52)
[2023-08-16] MEDS: METHIMAZOLE 10 MG TABLET PO SCH (06:55)
[2023-08-16] MEDS ORDERED: ALLOPURINOL 300 MG TABLET (FP) PO SCH (07:00)
[2023-08-16 08:22] LABS: HEMATOCRIT 26.4 % (35.4-49); LYMPH % 9.9 % (8-40); MCH 21.2 pg (25.7-33.7); MCHC 30.3 g/dl (32.0-35.9); MEAN CELL VOLUME 69.9 fl (80-96); MEAN PLT VOLUME 7.9 fl (7.5-11.1); MONO % 13.9 % (3.8-10.2); NEUT % 73.2 % (42.8-82.8); PLATELET COUNT 326 10^3/uL (134-434); RBC 3.77 M/mm3 (4.00-5.60); RDW 22.9 % (11.9-15.9); WHITE BLOOD COUNT 7.2 K/mm3 (4.0-10.0)
[2023-08-16 08:26] LABS: INR 2.11 (0.83-1.09); PROTHROMBIN TIME (PATIENT) 24.3 SEC (9.7-13.0)
[2023-08-16] MEDS: SEVELAMER CARBONATE 800 MG TAB (FP) PO SCH ×3 (08:33→16:46)
[2023-08-16 08:57] LABS: POTASSIUM 3.9 mmol/L (3.5-5.1)
[2023-08-16 09:04] LABS: ALBUMIN 2.8 g/dl (3.4-5.0); BLOOD UREA NITROGEN 72.7 mg/dL (7-18); CALCIUM 8.4 mg/dL (8.5-10.1)
[2023-08-16 09:07] LABS: CREATININE 3.8 mg/dL (0.55-1.3)
[2023-08-16 09:08] LABS: BILIRUBIN,TOTAL 1.5 mg/dL (0.2-1); TOT PROT 6.9 g/dl (6.4-8.2)
[2023-08-16 09:24] LABS: MAGNESIUM 2.3 mg/dL (1.8-2.4)
[2023-08-16] MEDS: ALLOPURINOL 100 MG TABLET (FP) PO SCH (10:14)
[2023-08-16] MEDS: PANTOPRAZOLE SODIUM 40 MG VIAL IVPUSH SCH (10:14)
[2023-08-16] MEDS: ATORVASTATIN CA 40 MG TABLET (FP) PO SCH (21:52)
[2023-08-16] MEDS: MELATONIN 5 MG TABLETS PO SCH (21:52)
[2023-08-16] MEDS: traZODone HCL 50 MG TABLET (FP) PO SCH (21:52)
[2023-08-17] MEDS: TORSEMIDE 20 MG TABLET (FP) PO SCH ×2 (05:32→17:17)
[2023-08-17] MEDS: busPIRone HCL 5 MG TABLET PO SCH (05:32)
[2023-08-17] MEDS: METHIMAZOLE 10 MG TABLET PO SCH (06:06)
[2023-08-17] MEDS: ISOSORBIDE MONONITRATE 30 MG TAB.SR.24H (FP) PO SCH (06:06)
[2023-08-17] MEDS: INSULIN SLIDING SCALE (NOVOLOG) 1 VIAL SQ SCH ×4 (06:06→21:38)
[2023-08-17 07:39] LABS: HEMATOCRIT 23.8 % (35.4-49); HEMOGLOBIN 7.4 GM/dL (11.7-16.9); MCH 21.5 pg (25.7-33.7); MCHC 31.1 g/dl (32.0-35.9); MEAN CELL VOLUME 69.1 fl (80-96); MEAN PLT VOLUME 7.5 fl (7.5-11.1); PLATELET COUNT 276 10^3/uL (134-434); RBC 3.44 M/mm3 (4.00-5.60); RDW 22.9 % (11.9-15.9); WHITE BLOOD COUNT 7.3 K/mm3 (4.0-10.0)
[2023-08-17 08:06] LABS: POTASSIUM 3.7 mmol/L (3.5-5.1)
[2023-08-17 08:10] LABS: ALBUMIN 2.6 g/dl (3.4-5.0)
[2023-08-17 08:11] LABS: BLOOD UREA NITROGEN 71.3 mg/dL (7-18); MAGNESIUM 2.2 mg/dL (1.8-2.4)
[2023-08-17 08:13] LABS: PHOSPHOROUS 3.9 mg/dL (2.5-4.9)
[2023-08-17 08:14] LABS: CREATININE 3.5 mg/dL (0.55-1.3)
[2023-08-17 08:15] LABS: TOT PROT 6.4 g/dl (6.4-8.2)
[2023-08-17] MEDS: PANTOPRAZOLE SODIUM 40 MG VIAL IVPUSH SCH (10:48)
[2023-08-17] MEDS: ALLOPURINOL 100 MG TABLET (FP) PO SCH (10:48)
[2023-08-17] MEDS: SEVELAMER CARBONATE 800 MG TAB (FP) PO SCH ×3 (10:48→17:17)
[2023-08-17] MEDS: ATORVASTATIN CA 40 MG TABLET (FP) PO SCH (21:30)
[2023-08-17] MEDS: MELATONIN 5 MG TABLETS PO SCH (21:30)
[2023-08-18] MEDS: TORSEMIDE 20 MG TABLET (FP) PO SCH ×2 (05:26→17:17)
[2023-08-18] MEDS: INSULIN SLIDING SCALE (NOVOLOG) 1 VIAL SQ SCH ×4 (06:02→21:48)
[2023-08-18] MEDS: METHIMAZOLE 10 MG TABLET PO SCH (06:02)
[2023-08-18] MEDS: ISOSORBIDE MONONITRATE 30 MG TAB.SR.24H (FP) PO SCH (06:05)
[2023-08-18] MEDS: SEVELAMER CARBONATE 800 MG TAB (FP) PO SCH ×3 (08:12→17:18)
[2023-08-18 08:28] LABS: BASO % 0.4 % (0-2.0); EOS % 1.8 % (0-4.5); HEMATOCRIT 27.6 % (35.4-49); HEMOGLOBIN 8.4 GM/dL (11.7-16.9); LYMPH % 7.7 % (8-40); MCH 21.4 pg (25.7-33.7); MCHC 30.3 g/dl (32.0-35.9); MEAN CELL VOLUME 70.5 fl (80-96); MEAN PLT VOLUME 7.9 fl (7.5-11.1); MONO % 13.1 % (3.8-10.2); PLATELET COUNT 301 10^3/uL (134-434); RBC 3.91 M/mm3 (4.00-5.60); RDW 23.6 % (11.9-15.9); WHITE BLOOD COUNT 7.9 K/mm3 (4.0-10.0)
[2023-08-18 08:51] LABS: POTASSIUM 3.9 mmol/L (3.5-5.1)
[2023-08-18 09:00] LABS: ALBUMIN 2.7 g/dl (3.4-5.0); BLOOD UREA NITROGEN 70.1 mg/dL (7-18); CALCIUM 8.1 mg/dL (8.5-10.1)
[2023-08-18 09:03] LABS: CREATININE 3.5 mg/dL (0.55-1.3)
[2023-08-18 09:04] LABS: BILIRUBIN,TOTAL 1.3 mg/dL (0.2-1); TOT PROT 6.6 g/dl (6.4-8.2)
[2023-08-18 09:33] LABS: ANISOCYTOSIS 3+; MACROCYTOSIS 0; OVALOCYTE 2+; TEAR DROP CELLS 2+
[2023-08-18] MEDS: ESCITALOPRAM OXALATE 10 MG TABLET PO SCH (10:08)
[2023-08-18] MEDS: ALLOPURINOL 100 MG TABLET (FP) PO SCH (10:08)
[2023-08-18] MEDS: POTASSIUM CHLORIDE TABS 20 MEQ TABLET.ER (FP) PO SCH ×2 (10:08→21:47)
[2023-08-18] MEDS: PANTOPRAZOLE 40 MG TABLET PO SCH (10:09)
[2023-08-18] MEDS: ATORVASTATIN CA 40 MG TABLET (FP) PO SCH (21:47)
[2023-08-18] MEDS: MELATONIN 5 MG TABLETS PO SCH (21:47)
[2023-08-19] MEDS: POTASSIUM CHLORIDE TABS 20 MEQ TABLET.ER (FP) PO SCH ×5 (00:44→21:48)
[2023-08-19] MEDS: INSULIN SLIDING SCALE (NOVOLOG) 1 VIAL SQ SCH ×4 (06:03→21:56)
[2023-08-19] MEDS: METHIMAZOLE 10 MG TABLET PO SCH (06:03)
[2023-08-19] MEDS: TORSEMIDE 20 MG TABLET (FP) PO SCH ×2 (06:03→17:41)
[2023-08-19] MEDS: ISOSORBIDE MONONITRATE 30 MG TAB.SR.24H (FP) PO SCH (06:04)
[2023-08-19 07:16] LABS: BASO % 1.3 % (0-2.0); EOS % 1.3 % (0-4.5); HEMOGLOBIN 8.3 GM/dL (11.7-16.9); MCH 21.3 pg (25.7-33.7); MCHC 29.6 g/dl (32.0-35.9); MEAN CELL VOLUME 72.2 fl (80-96); MEAN PLT VOLUME 7.3 fl (7.5-11.1); MONO % 11.6 % (3.8-10.2); NEUT % 78.8 % (42.8-82.8); PLATELET COUNT 276 10^3/uL (134-434); RBC 3.88 M/mm3 (4.00-5.60); RDW 23.6 % (11.9-15.9); WHITE BLOOD COUNT 7.6 K/mm3 (4.0-10.0)
[2023-08-19 07:42] LABS: BLOOD UREA NITROGEN 67.1 mg/dL (7-18); CALCIUM 8.4 mg/dL (8.5-10.1)
[2023-08-19 07:43] LABS: ALBUMIN 2.6 g/dl (3.4-5.0)
[2023-08-19 07:45] LABS: BILIRUBIN,TOTAL 1.3 mg/dL (0.2-1); TOT PROT 6.6 g/dl (6.4-8.2)
[2023-08-19 07:46] LABS: CREATININE 3.1 mg/dL (0.55-1.3)
[2023-08-19] MEDS: SEVELAMER CARBONATE 800 MG TAB (FP) PO SCH ×3 (10:49→17:42)
[2023-08-19] MEDS: PANTOPRAZOLE 40 MG TABLET PO SCH (10:52)
[2023-08-19] MEDS: ALLOPURINOL 100 MG TABLET (FP) PO SCH (10:52)
[2023-08-19] MEDS: ESCITALOPRAM OXALATE 10 MG TABLET PO SCH (10:52)
[2023-08-19] MEDS: MELATONIN 5 MG TABLETS PO SCH (21:48)
[2023-08-19] MEDS: ATORVASTATIN CA 40 MG TABLET (FP) PO SCH (21:48)
[2023-08-20] MEDS: ISOSORBIDE MONONITRATE 30 MG TAB.SR.24H (FP) PO SCH (06:02)
[2023-08-20] MEDS: TORSEMIDE 20 MG TABLET (FP) PO SCH ×2 (06:02→17:31)
[2023-08-20] MEDS: METHIMAZOLE 10 MG TABLET PO SCH (06:03)
[2023-08-20] MEDS: INSULIN SLIDING SCALE (NOVOLOG) 1 VIAL SQ SCH ×4 (06:07→21:47)
[2023-08-20 07:28] LABS: INR 1.62 (0.83-1.09); PROTHROMBIN TIME (PATIENT) 18.7 SEC (9.7-13.0)
[2023-08-20 07:29] LABS: EOS % 1.3 % (0-4.5); HEMATOCRIT 26.7 % (35.4-49); HEMOGLOBIN 8.3 GM/dL (11.7-16.9); LYMPH % 5.7 % (8-40); MCH 21.9 pg (25.7-33.7); MCHC 31.1 g/dl (32.0-35.9); MEAN CELL VOLUME 70.4 fl (80-96); MEAN PLT VOLUME 7.5 fl (7.5-11.1); MONO % 12.1 % (3.8-10.2); NEUT % 79.9 % (42.8-82.8); PLATELET COUNT 259 10^3/uL (134-434); RBC 3.79 M/mm3 (4.00-5.60); RDW 24.3 % (11.9-15.9)
[2023-08-20 07:45] LABS: POTASSIUM 4.1 mmol/L (3.5-5.1)
[2023-08-20 07:47] LABS: CALCIUM 8.1 mg/dL (8.5-10.1)
[2023-08-20 07:48] LABS: ALBUMIN 2.6 g/dl (3.4-5.0)
[2023-08-20 07:51] LABS: CREATININE 3.1 mg/dL (0.55-1.3)
[2023-08-20 07:52] LABS: BILIRUBIN,TOTAL 1.4 mg/dL (0.2-1); TOT PROT 6.3 g/dl (6.4-8.2)
[2023-08-20] MEDS: ESCITALOPRAM OXALATE 10 MG TABLET PO SCH (10:21)
[2023-08-20] MEDS: POTASSIUM CHLORIDE TABS 20 MEQ TABLET.ER (FP) PO SCH ×2 (10:21→21:31)
[2023-08-20] MEDS: SEVELAMER CARBONATE 800 MG TAB (FP) PO SCH ×3 (10:21→17:31)
[2023-08-20] MEDS: ALLOPURINOL 100 MG TABLET (FP) PO SCH (10:22)
[2023-08-20] MEDS: PANTOPRAZOLE 40 MG TABLET PO SCH (10:22)
[2023-08-20] MEDS: MELATONIN 5 MG TABLETS PO SCH (21:31)
[2023-08-20] MEDS: ATORVASTATIN CA 40 MG TABLET (FP) PO SCH (21:31)
[2023-08-21] MEDS: ISOSORBIDE MONONITRATE 30 MG TAB.SR.24H (FP) PO SCH (06:23)
[2023-08-21] MEDS: METHIMAZOLE 10 MG TABLET PO SCH (06:23)
[2023-08-21] MEDS: TORSEMIDE 20 MG TABLET (FP) PO SCH (06:23)
[2023-08-21] MEDS: INSULIN SLIDING SCALE (NOVOLOG) 1 VIAL SQ SCH ×4 (06:29→21:19)
[2023-08-21 08:46] LABS: BASO % 1.1 % (0-2.0); EOS % 1.6 % (0-4.5); HEMATOCRIT 27.3 % (35.4-49); HEMOGLOBIN 8.2 GM/dL (11.7-16.9); LYMPH % 6.8 % (8-40); MCH 21.3 pg (25.7-33.7); MCHC 30.1 g/dl (32.0-35.9); MEAN CELL VOLUME 70.8 fl (80-96); MONO % 12.1 % (3.8-10.2); NEUT % 78.4 % (42.8-82.8); PLATELET COUNT 260 10^3/uL (134-434); RBC 3.86 M/mm3 (4.00-5.60); RDW 24.5 % (11.9-15.9); WHITE BLOOD COUNT 6.6 K/mm3 (4.0-10.0)
[2023-08-21 08:53] LABS: INR 1.62 (0.83-1.09); PROTHROMBIN TIME (PATIENT) 18.7 SEC (9.7-13.0)
[2023-08-21 09:15] LABS: POTASSIUM 3.9 mmol/L (3.5-5.1)
[2023-08-21 09:18] LABS: CALCIUM 8.2 mg/dL (8.5-10.1)
[2023-08-21 09:19] LABS: ALBUMIN 2.6 g/dl (3.4-5.0); ANISOCYTOSIS 2+; BLOOD UREA NITROGEN 57.2 mg/dL (7-18); MACROCYTOSIS 1+; OVALOCYTE 1+
[2023-08-21 09:22] LABS: CREATININE 2.9 mg/dL (0.55-1.3)
[2023-08-21 09:23] LABS: BILIRUBIN,TOTAL 1.4 mg/dL (0.2-1); TOT PROT 6.4 g/dl (6.4-8.2)
[2023-08-21] MEDS: PANTOPRAZOLE 40 MG TABLET PO SCH (11:32)
[2023-08-21] MEDS: SEVELAMER CARBONATE 800 MG TAB (FP) PO SCH ×3 (11:32→17:23)
[2023-08-21] MEDS: ESCITALOPRAM OXALATE 10 MG TABLET PO SCH (11:32)
[2023-08-21] MEDS: POTASSIUM CHLORIDE TABS 20 MEQ TABLET.ER (FP) PO SCH ×2 (11:32→21:19)
[2023-08-21] MEDS: ALLOPURINOL 100 MG TABLET (FP) PO SCH (11:32)
[2023-08-21] MEDS: FUROSEMIDE 40 MG/4 ML INJECTABLE VIAL IVPUSH SCH (14:39)
[2023-08-21] MEDS: TAMSULOSIN HCL 0.4 MG CAP PO SCH (21:19)
[2023-08-21] MEDS: ATORVASTATIN CA 40 MG TABLET (FP) PO SCH (21:19)
[2023-08-21] MEDS: MELATONIN 5 MG TABLETS PO SCH (21:19)
[2023-08-22] MEDS: FUROSEMIDE 40 MG/4 ML INJECTABLE VIAL IVPUSH SCH ×2 (05:36→14:27)
[2023-08-22] MEDS: METHIMAZOLE 10 MG TABLET PO SCH (06:11)
[2023-08-22] MEDS: ISOSORBIDE MONONITRATE 30 MG TAB.SR.24H (FP) PO SCH (06:11)
[2023-08-22] MEDS: INSULIN SLIDING SCALE (NOVOLOG) 1 VIAL SQ SCH ×3 (06:12→18:27)
[2023-08-22 08:02] LABS: BASO % 0.7 % (0-2.0); EOS % 1.9 % (0-4.5); HEMATOCRIT 27.2 % (35.4-49); HEMOGLOBIN 8.4 GM/dL (11.7-16.9); LYMPH % 7.6 % (8-40); MCH 21.6 pg (25.7-33.7); MCHC 30.9 g/dl (32.0-35.9); MEAN CELL VOLUME 69.9 fl (80-96); MEAN PLT VOLUME 7.4 fl (7.5-11.1); MONO % 12.7 % (3.8-10.2); NEUT % 77.1 % (42.8-82.8); PLATELET COUNT 224 10^3/uL (134-434); RBC 3.89 M/mm3 (4.00-5.60); RDW 24.9 % (11.9-15.9); WHITE BLOOD COUNT 6.6 K/mm3 (4.0-10.0)
[2023-08-22 08:12] LABS: POTASSIUM 3.6 mmol/L (3.5-5.1)
[2023-08-22 08:15] LABS: CALCIUM 8.3 mg/dL (8.5-10.1)
[2023-08-22 08:16] LABS: ALBUMIN 2.6 g/dl (3.4-5.0); BLOOD UREA NITROGEN 53.9 mg/dL (7-18)
[2023-08-22 08:19] LABS: CREATININE 2.7 mg/dL (0.55-1.3)
[2023-08-22 08:20] LABS: BILIRUBIN,TOTAL 1.5 mg/dL (0.2-1); TOT PROT 6.4 g/dl (6.4-8.2)
[2023-08-22] MEDS: POTASSIUM CHLORIDE TABS 20 MEQ TABLET.ER (FP) PO SCH ×2 (10:28→21:18)
[2023-08-22] MEDS: PANTOPRAZOLE 40 MG TABLET PO SCH (10:28)
[2023-08-22] MEDS: ESCITALOPRAM OXALATE 10 MG TABLET PO SCH (10:29)
[2023-08-22] MEDS: SEVELAMER CARBONATE 800 MG TAB (FP) PO SCH ×3 (10:29→18:27)
[2023-08-22] MEDS: ALLOPURINOL 100 MG TABLET (FP) PO SCH (10:29)
[2023-08-22] MEDS: MELATONIN 5 MG TABLETS PO SCH (21:17)
[2023-08-22] MEDS: TAMSULOSIN HCL 0.4 MG CAP PO SCH (21:17)
[2023-08-22] MEDS: ATORVASTATIN CA 40 MG TABLET (FP) PO SCH (21:18)
[2023-08-23] MEDS: ISOSORBIDE MONONITRATE 30 MG TAB.SR.24H (FP) PO SCH (06:13)
[2023-08-23] MEDS: FUROSEMIDE 40 MG/4 ML INJECTABLE VIAL IVPUSH SCH ×2 (06:13→14:33)
[2023-08-23] MEDS: METHIMAZOLE 10 MG TABLET PO SCH (06:13)
[2023-08-23 10:09] LABS: BASO % 1.5 % (0-2.0); EOS % 2.3 % (0-4.5); HEMATOCRIT 26.8 % (35.4-49); LYMPH % 5.8 % (8-40); MEAN CELL VOLUME 69.9 fl (80-96); MEAN PLT VOLUME 7.9 fl (7.5-11.1); MONO % 12.6 % (3.8-10.2); NEUT % 77.8 % (42.8-82.8); PLATELET COUNT 210 10^3/uL (134-434); RBC 3.83 M/mm3 (4.00-5.60); RDW 24.9 % (11.9-15.9); WHITE BLOOD COUNT 6.3 K/mm3 (4.0-10.0)
[2023-08-23 10:35] LABS: POTASSIUM 3.4 mmol/L (3.5-5.1)
[2023-08-23 10:37] LABS: ALBUMIN 2.5 g/dl (3.4-5.0)
[2023-08-23 10:38] LABS: BLOOD UREA NITROGEN 43.9 mg/dL (7-18)
[2023-08-23 10:41] LABS: CREATININE 2.4 mg/dL (0.55-1.3)
[2023-08-23 10:42] LABS: BILIRUBIN,TOTAL 1.3 mg/dL (0.2-1)
[2023-08-23] MEDS: SEVELAMER CARBONATE 800 MG TAB (FP) PO SCH ×3 (10:56→17:59)
[2023-08-23] MEDS: ESCITALOPRAM OXALATE 10 MG TABLET PO SCH (10:57)
[2023-08-23] MEDS: PANTOPRAZOLE 40 MG TABLET PO SCH (10:57)
[2023-08-23] MEDS: ALLOPURINOL 100 MG TABLET (FP) PO SCH (10:57)
[2023-08-23] MEDS: POTASSIUM CHLORIDE TABS 20 MEQ TABLET.ER (FP) PO SCH ×2 (10:57→21:34)
[2023-08-23] MEDS ORDERED: POTASSIUM CHLORIDE ORAL LIQUID 20 MEQ/15 ML PO ONE (13:30)
[2023-08-23 17:12] LABS: BF WBC & OTHER NUCLEATED CELLS 214 /mm3
[2023-08-23 18:21] LABS: BODY FLUID MACROPHAGES 73 %; BODY FLUID MESOTHELIAL 2 %; BODY FLUID MONOCYTE 8 %
[2023-08-23] MEDS ORDERED: ALBUMIN HUMAN 25% 12.5 GM/50 ML VIAL IV ONE (19:30)
[2023-08-23] MEDS: MELATONIN 5 MG TABLETS PO SCH (21:34)
[2023-08-23] MEDS: ATORVASTATIN CA 40 MG TABLET (FP) PO SCH (21:34)
[2023-08-23] MEDS: TAMSULOSIN HCL 0.4 MG CAP PO SCH (21:34)
[2023-08-24] MEDS: FUROSEMIDE 40 MG/4 ML INJECTABLE VIAL IVPUSH SCH ×2 (05:45→14:27)
[2023-08-24] MEDS: ISOSORBIDE MONONITRATE 30 MG TAB.SR.24H (FP) PO SCH (06:17)
[2023-08-24] MEDS: METHIMAZOLE 10 MG TABLET PO SCH (06:17)
[2023-08-24] MEDS: SEVELAMER CARBONATE 800 MG TAB (FP) PO SCH ×3 (07:49→17:13)
[2023-08-24 08:15] LABS: BASO % 0.9 % (0-2.0); EOS % 2.2 % (0-4.5); HEMATOCRIT 27.7 % (35.4-49); HEMOGLOBIN 8.1 GM/dL (11.7-16.9); LYMPH % 9.6 % (8-40); MCH 20.9 pg (25.7-33.7); MCHC 29.2 g/dl (32.0-35.9); MEAN CELL VOLUME 71.4 fl (80-96); MEAN PLT VOLUME 7.8 fl (7.5-11.1); MONO % 12.3 % (3.8-10.2); PLATELET COUNT 182 10^3/uL (134-434); RBC 3.88 M/mm3 (4.00-5.60); WHITE BLOOD COUNT 6.4 K/mm3 (4.0-10.0)
[2023-08-24 08:34] LABS: POTASSIUM 4.1 mmol/L (3.5-5.1)
[2023-08-24 08:36] LABS: ALBUMIN 2.6 g/dl (3.4-5.0); BLOOD UREA NITROGEN 41.8 mg/dL (7-18)
[2023-08-24 08:39] LABS: CREATININE 2.5 mg/dL (0.55-1.3)
[2023-08-24 08:41] LABS: BILIRUBIN,TOTAL 1.4 mg/dL (0.2-1); TOT PROT 5.9 g/dl (6.4-8.2)
[2023-08-24 08:48] LABS: BILIRUBIN,DIRECT 0.6 mg/dL (0.0-0.2)
[2023-08-24] MEDS: PANTOPRAZOLE 40 MG TABLET PO SCH (09:38)
[2023-08-24] MEDS: ALLOPURINOL 100 MG TABLET (FP) PO SCH (09:38)
[2023-08-24] MEDS: POTASSIUM CHLORIDE TABS 20 MEQ TABLET.ER (FP) PO SCH ×2 (09:38→21:12)
[2023-08-24] MEDS: ESCITALOPRAM OXALATE 10 MG TABLET PO SCH (09:38)
[2023-08-24] MEDS: MELATONIN 5 MG TABLETS PO SCH (21:11)
[2023-08-24] MEDS: ATORVASTATIN CA 40 MG TABLET (FP) PO SCH (21:12)
[2023-08-24] MEDS: TAMSULOSIN HCL 0.4 MG CAP PO SCH (21:13)
[2023-08-24 21:50] VITALS: BP 100/69; PULSE 101; RESP 17; TEMP 98.1
[2023-08-24] MEDS ORDERED: POLYETHYLENE GLYCOL (HEALTHYLAX) 3350 17 GM PACKET PO SCH (22:00)
[2023-08-25 12:17] LABS: BODY FLUID ALBUMIN 1.8 g/dL (Not Estab.)
== END 2023-08-24 22:14 | disposition left against medical advice (07) | DRG 661 ==
LOC: EDBD → JER 01:14 → INTOOBSV 04:43 → UNDOADMOB 04:43 → JERBED 04:43 → J4S 07:53 → JERBED 08:38 → OBSVTOIN 08-16 16:39
PROVIDERS: ADMIT Internal Medicine; ATTEND Internal Medicine
PROC: 0DB98ZX Excision of Duodenum, Via Natural or Artificial Opening Endoscopic, Diagnostic (ICD-10-PCS; 2023-08-21)
PROC: 0DB78ZX Excision of Stomach, Pylorus, Via Natural or Artificial Opening Endoscopic, Diagnostic (ICD-10-PCS; 2023-08-21)
PROC: 0W9G3ZZ Drainage of Peritoneal Cavity, Percutaneous Approach (ICD-10-PCS; principal; 2023-08-23)
DX: D68.32 Hemorrhagic disorder due to extrinsic circulating anticoagulants (principal); I13.0 Hypertensive heart and chronic kidney disease with heart failure and stage 1 through stage 4 chronic kidney disease, or unspecified chronic kidney disease; E11.22 Type 2 diabetes mellitus with diabetic chronic kidney disease; N18.30 Chronic kidney disease, stage 3 unspecified; I50.33 Acute on chronic diastolic (congestive) heart failure; N17.9 Acute kidney failure, unspecified; I27.20 Pulmonary hypertension, unspecified; I08.1 Rheumatic disorders of both mitral and tricuspid valves; J61 Pneumoconiosis due to asbestos and other mineral fibers; K92.2 Gastrointestinal hemorrhage, unspecified; R80.9 Proteinuria, unspecified; K21.00 Gastro-esophageal reflux disease with esophagitis, without bleeding; R18.8 Other ascites; D62 Acute posthemorrhagic anemia; D50.9 Iron deficiency anemia, unspecified; N31.9 Neuromuscular dysfunction of bladder, unspecified; E03.9 Hypothyroidism, unspecified; E78.5 Hyperlipidemia, unspecified; G89.29 Other chronic pain; I48.91 Unspecified atrial fibrillation; F32.A Depression, unspecified; E05.90 Thyrotoxicosis, unspecified without thyrotoxic crisis or storm; N40.1 Benign prostatic hyperplasia with lower urinary tract symptoms; R33.8 Other retention of urine; R45.84 Anhedonia; Z89.422 Acquired absence of other left toe(s)
CPT/HCPCS: 36415; 36430; 71045-TC-FY; 74018-TC-FY; 76700-TC; 76775-TC; 76856-TC; 76942-TC; 80053; 81003; 82042; 82105; 82150; 82248; 82272; 82465; 82570; 82728; 82945; 82962; 82977; 83540; 83550; 83615; 83735; 83935; 83986; 84100; 84156; 84157; 84300; 84439; 84443; 84478; 84481; 84484; 85025; 85027; 85045; 85610; 85730; 86140; 86704; 86708; 86803; 86900; 87070; 87075; 87102; 87116; 87205; 87206; 87210; 87340; 87517; 88108; 88305-TC; 93005; 93010; 97116-GP; 97161-GP; 99285-25; G0378; P9047; P9058